=== PATIENT | female | born 2005 | race Caucasian/White ===

== ENCOUNTER 2024-10-15 06:28 | Outpatient (REF) | payer BC, SELFPAY ==
--- NOTE | ~2024-10-15 | US_ITS ---
CLINICAL HISTORY: PELVIC PAIN US PELVIS TRANSABDOMINAL AND TRANSVAGINAL Comparison: None Findings: Transabdominal scanning performed for overall anatomy. Transvaginal scanning performed for additional detail. The uterus measures 8 cm in length. Normal myometrium. Nonspecific fluid distention of the endometrium up to 4 mm in the lower uterine segment. The IUD appears in satisfactory position. Right ovary 4.2 x 3.3 x 3.8 cm. There is a 3.5 x 2.2 x 3.4 cm simple cyst. Left ovary 2.6 x 2.4 x 2.0 cm. Normal color Doppler of both ovaries. No free fluid. IMPRESSION: 1. Color flow in the bilateral ovaries was observed. 2. 3.5 cm simple cyst in the right ovary. SRU Consensus Statement recommendations (Mcintyre, et al. Radiology 2019;[id number]) suggest the following: Common finding. No need for further follow-up. 3. Unremarkable left ovary. 4. IUD in satisfactory position. 5. No free fluid. This document has been electronically signed by: Shea Olguin DO on 10/15/2024 16:55:06
--- OUTSIDE RECORDS SUMMARY | 2024-10-15 06:31 | XMS_ITS | Encounter Summary ---
Author Organization [facility] Address [address] [place] [address] Care Team Providers Care Pit Manager Name Role Phone Thai Castellanos MD Primary Care Provider Encounter Details Date Type Department Care Team (Late st Contact Info) Description 10/24/2023 Community Orders [facility] EpicCare Link [address] [place] [address] Michelle De La Rosa MD [address] [address] Nausea and vomiting, unspecified vomiting type (Primary Dx) Social History Tobacco Use Types Packs/Day Years Used Date Smoking Tobacco: Never Assessed Comments Unknown Sex and Gender Information Value Date Recorded Sex Assigned at Female 06/23/2022 8:18 AM EST Legal Sex Female 6:39 AM EDT Gender Identity Female 06/23/2022 8:18 AM EST Sexual Orientation Bisexual 06/23/2022 8: 18 AM EST documented as of this encounter Plan of Treatment Not on file documented as of this encounter Visit Diagnoses Diagnosis Nausea and vomiting, unspecified vomiting type- Primary documented in this encounter Care Teams Pit Manager Relationship Specialty Start Date End Date Thai Castellanos MD [address] [address] PCP - General 02/09/17 documented as of this encounter
--- OUTSIDE RECORDS SUMMARY | 2024-10-15 06:31 | XMS_ITS | Patient Health Record ---
Author Organization [facility] [employer] Address [address] [address] Care Team Providers Care Hydropulper Operator Name Role Phone Thai Castellanos Primary Care Provider Avinash Ferreira Unavailable [phone] Pratibha Juarez Unavailable [phone] Allergies No Known Allergies Reason For Referral No Information Medications Medication SIG (Take, Route, Frequency, Duration) Notes Start Date End Date Status Rizatriptan Benzoate 10 MG 1 tablet Oral ly at the onset of migraine may repeat once more in 2 hours PRN for 30 days 09/24/2024 Active DULoxetine HCl 20 MG 1 capsule Orally On ce a day for 30 days Active Spironolactone 50 MG 1 tablet Orally Onc e a day Active Social History Tobacco Use: Social History Observation Description Date Details (start date - stop date) Never Smoker NA - NA Tobacco Use/Smoking Question Answer Notes Are you a nonsmoker Tobacco use other than smoking: Question Answer Notes Are you an other tobacco user? No Problems Problem Type SNOMED Code ICD Code Onset Dates Problem Status W/U Status Risk Notes Problem Anxiety (19646101) Anxiety (F41.9) Active confirmed Problem Fatigue (42561150) Fatigue (R53.83) Active confirmed Problem Migraine (89067061) Migraine (G43.909) Active confirmed Problem Depression (784089713) Depression (F32.9) Active confirmed Problem Dizziness (204270120) Dizziness (R42) Active confirmed Problem Concussion injury of brain (103669649) Concussion (S06.0X9A) Active confirmed Problem Attention deficit hyperactivity disorder (033719541) ADHD (attention deficit hyperactivity disorder) (F90.9) Active confirmed Problem Equilibration disorder, vestibular nerve (disorder) (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) Vestibular disequilibrium (H83.2X9) Active confirmed Problem Headache disorder (492778013) Headache disorder (R51.9) Active confirmed Vital Signs BMI Percentile 67.58 % 03/18/2024 Height 66 in 09/24/2024 Weight 145 lbs 09/24/2024 BMI 23.4 kg/m2 09/24/2024 Encounters Encounter Location Date Provider Diagnosis [address] [address] 01/17/2024 Pratibha Juarez Migraine G43.909 ; Depression F32.9 ; Vestibular disequilibrium H83.2X9 and Concussion S06.0X9A [address] [address] 03/18/2024 Pratibha Juarez Migraine G43.909 ; Depression F32.9 ; Vestibular disequilibrium H83.2X9 and Concussion S06.0X9A [address] [address] [facility]/24[facility]20[facility] G43.909 ; Depression F32.9 ; Vestibular disequilibrium H83.2X9 and Concussion S06.0X9A [address] [address] 10/17/[address] [address] 01/16/[address] [address] 04/04/[address] [address] 04/10/[address] [address] 10/07/2024 [facility] Assessments Encounter Date Diagnosis (ICD Code) Assessment Notes Treatment Notes Treatment Clinical Notes Section Notes 01/17/2024 Migraine (ICD-10 - G43.909) Patient with history of migraines and mood disorder. She previously discontinued and then recently restarted Duloxetine due to return of symptoms. It has been 1 month since restarting medication and noted benefit. At this time, we will hold off on any further dose adjustments as she hopes to stay on the lowest dose possible. She typically notes worsened migraines around menstrual cycle and will continue to track and monitor symptoms over the next two months. I also recommend that she continue to engage with therapy. We will follow up at that time and earlier as needed for any new or worsening symptoms. 01/17/2024 Depression (ICD-10 - F32.9) Stable and without SI, will continue to monitor. 03/18/2024 Migraine (ICD-10 - G43.909) Patient with history of migraines and mood disorder, currently improved and stable. She has continued taking Duloxetine 20mg and is tolerating well and without any side effects. We will not make any adjustment in medication at this time given stability. She will continue with therapy. We will plan to follow up in 6 months and earlier as needed for any concerns or for any new or worsening symptoms. 03/18/2024 Depression (ICD-10 - F32.9) Stable and without SI, will continue to monitor. 09/24/2024 Migraine (ICD-10 - G43.909) History of migraines and mood disorder, currently improved and stable. Migraine frequency has decreased to 4-5/month. Triggers are menstural cycle and stress. She has continued taking Duloxetine 40mg and is tolerating well and without any side effects. She would like to explor other medication options for migraine to be use on an as needed basis only and taper Duloxetine slowly as she has noted side effects in the past. We discussed use of triptans for management as rescue including benefits, potential side effects, and dosing and is agreeable to plan. Could also try a CGRP in the future, such as Nurtec. She will start Rizatriptan 10mg PRN migraine. Educated that she can repeat dose after two hours for either partial or no relief of migraine symptoms. I recommend that she continue with therapy as she has been. We will plan to follow up again in 3 months and earlier as needed for any medication concerns or for any new or worsening symptoms. 09/24/2024 Depression (ICD-10 - F32.9) Mood current stable, she would like to trial tapering dose to 20mg daily. A new prescription was sent to the preferred pharmacy. 01/17/2024 Vestibular disequilibrium (ICD-10 - H83.2X9) Stable, will continue to monitor. 03/18/2024 Vestibular disequilibrium (ICD-10 - H83.2X9) 09/24/2024 Vestibular disequilibrium (ICD-10 - H83.2X9) 01/17/2024 Concussion (ICD-10 - S06.0X9A) Stable, will continue to monitor. 09/24/2024 Concussion (ICD-10 - S06.0X9A) Stable, will continue to monitor. 03/18/2024 Concussion (ICD-10 - S06.0X9A) Stable, will continue to monitor. 01/17/2024 Other Visit conducte d using telemedicine technology including audio and video and was requested by patient. Information regarding telehealth communicated to patient. SECURITY PROJECT MANAGER was at office and patient was at home during visit. 03/18/2024 Other Visit conducte d using telemedicine technology including audio and video and was requested by patient. Information regarding telehealth communicated to patient. SECURITY PROJECT MANAGER was at office and patient was at home during visit. 09/24/2024 Other Visit conducte d using telemedicine technology including audio and video and was requested by patient. Information regarding telehealth communicated to patient. SECURITY PROJECT MANAGER was at office and patient was at home during visit. Plan Of Treatment Next Appt Details Provider Name:Pratibhacarin Juarez, 12/24/2024 10:00:00 AM, [address] [place] [address], [facility] [address], [place], [address], Insurance Providers Payer Name Payer Address Payer Phone Subscriber Number Group Number Insured Name Patient Relationship to Insured Coverage Start Date Coverage End Date Blue Cross and Blue Shield [address] [place] [address] [phone] [id number] Adrienne Mann Self - patient is the insured Medical (General) History Medical History History ICD Code Anxiety F41.9 Depression F32.9 Fatigue R53.83 Dizziness R42 Headache disorder R51.9 ADHD (attention deficit hyperactivity di sorder) F90.9 Surgical History Surgery Date(Month/Year) wisdom teeth
--- OUTSIDE RECORDS SUMMARY | 2024-10-15 06:31 | XMS_ITS | Encounter Summary ---
Author Organization [facility] Address [address] [place] [address] Care Team Providers Care Electrical Construction Project Manager Name Role Phone Thai Castellanos MD Primary Care Provider [phone] Encounter Details Date Type Department Care Team (Late st Contact Info) Description 08/29/2024 DRC Computert Message [facility] Pediatric and Adolescent [address] [place], [place] [phone] Cloth Finishing Range Operator Chief: Lisbeth Raygoza, DELORES [address] [facility] Pediatrics/Adoles cent Medicine [place], [place] [phone] Possible return of yeast infection Social History Tobacco Use Types Packs/Day Years Used Date Smoking Tobacco: Never Smokeless Tobacco: Never [facility] Utilities Answer Date Recorded In the past 12 months has [facility] electric, gas, oil, or water company threatened to shut off services in your home? No 05/29/2024 Hunger Vital Sign Answer Date Recorded Within the past 12 months, y ou worried that your food would run out before you got the money to buy more. Never true 05/29/20 24 Within the past 12 months, t he food you bought just didn't last and you didn't have money to get more. Never true 05/29/2024 Transportation Answer Date Recorded In the past 12 months, has l ack of reliable transportation kept you from medical appointments, meetings, work or from getting things needed for daily living? No 05/29/2024 Housing Answer Date Recorded Housing Risk Low 2 05/29/2024 Housing Risk Medium Not on file 05/29/2024 Housing Risk High Not on file 05/29/2024 What is your living situation today? [facility]STEAD[facility] 05/29/2024 Comments Unknown Sex and Gender Information Value Date Recorded Sex Assigned at Female 06/23/2022 8:18 AM EST Legal Sex Female 6:39 AM EDT Gender Identity Female 06/23/2022 8:18 AM EST Sexual Orientation Bisexual 06/23/2022 8: 18 AM EST documented as of this encounter Plan of Treatment Not on file documented as of this encounter Visit Diagnoses Not on filedocumented in this encounter Care Teams Electrical Construction Project Manager Relationship Specialty Start Date End Date Thai Castellanos MD [address] [place] [address] PCP - General 02/09/17 documented as of this encounter
--- OUTSIDE RECORDS SUMMARY | 2024-10-15 06:31 | XMS_ITS | Encounter Summary ---
Author Organization [facility] Address [address] [place] [address] Care Team Providers Care Dog Food Dough Mixer Name Role Phone Thai Castellanos MD Primary Care Provider Encounter Details Date Type Department Care Team (Late st Contact Info) Description 12/05/2022 Community Orders [facility] EpicCare Link [address] [place] [address] Michelle De La Rosa MD [address] [address] Vertigo (Primary Dx) Social History Tobacco Use Types [...] as of this encounter Visit Diagnoses Diagnosis Vertigo- Primary Dizziness and giddiness documented in this encounter Care Teams Dog Food Dough Mixer Relationship Specialty Start Date End Date Thai Castellanos MD [address] [address] PCP - General 02/09/17 documented as of this encounter
--- OUTSIDE RECORDS SUMMARY | 2024-10-15 06:31 | XMS_ITS | Encounter Summary ---
Author Organization [facility] Address [address] [place] [address] Care Team Providers Care Advertising Production Manager Name Role Phone Thai Castellanos MD Primary Care Provider Encounter Details Date Type Department Care Team (Late st Contact Info) Description 02/26/2018 Community Orders [facility] EpicCare Link [address] [place] [address] Thai Castellanos MD [address] [address] Periods, menstrual, difficult (Primary Dx) Social History Tobacco Use Types [...] as of this encounter Visit Diagnoses Diagnosis Periods, menstrual, difficult- Primary Dysmenorrhea documented in this encounter Additional Health Concerns Infection Onset Date Last Indicated Resolved Time COVID-19 - Suspected infection 08/17/2020 08/17/2020 08/17/2020 10:34 PM EST documented as of this encounter Care Teams Advertising Production Manager Relationship Specialty Start Date End Date Thai Castellanos MD [address] [address] PCP - General 02/09/17 documented as of this encounter
--- OUTSIDE RECORDS SUMMARY | 2024-10-15 06:31 | XMS_ITS | Encounter Summary ---
Author Organization [facility] Address [address] [place] [address] Care Team Providers Care Rn Clinical Name Role Phone Thai Castellanos MD Primary Care Provider Encounter Details Date Type Department Care Team (Late st Contact Info) Description 11/10/2022 Community Orders [facility] EpicCare Link [address] [place] [address] Thai Castellanos MD [address] [address] Dizziness (Primary Dx); Vertigo Social History Tobacco Use Types Packs/Day Years [...] as of this encounter Visit Diagnoses Diagnosis Dizziness- Primary Dizziness and giddiness Vertigo Dizziness and giddiness documented in this encounter Care Teams Rn Clinical Relationship Specialty Start Date End Date Thai Castellanos MD [address] [address] PCP - General 02/09/17 documented as of this encounter
--- OUTSIDE RECORDS SUMMARY | 2024-10-15 06:31 | XMS_ITS | Patient Health Record ---
Author Organization [facility] Address [address] [place] [address] Care Team Providers Care Paper Inspector Name Role Phone Thai Castellanos Primary Care Provider Evon Jacobs M.D, M.P.H, [place] Unavailable Allergies No Known Allergies Reason For Referral No Information Medications Medication SIG (Take, Route, Fr equency, Duration) Notes Start Date End Date Status DULoxetine HCl 60 MG 1 cap(s) orally once a day Active Social History Tobacco Use: Social History Observation Description Date Details (start date - stop date) Never Smoker NA - NA Smoking: Question Answer Notes Are you a : Never Smoker Alcohol Screen Question Answer Notes Did you have a drink containing alcohol in the p ast year? No Points 0 Interpretation Negative Plan Of Treatment No Information Insurance Providers Payer Name Payer Address Payer Phone Subscriber Number Group Number Insured Name Patient Relationship to Insured Coverage Start Date Coverage End Date [place] [address] [place] [address] [id number] Mackenzie Anam Greer Child - Insured has Financial Responsibility Medical (General) History Medical History History ICD Code anxiety depression Surgical History Surgery Date(Month/Year) bilateral eyes chiles removed front tooth crown root canal
--- OUTSIDE RECORDS SUMMARY | 2024-10-15 06:31 | XMS_ITS ---
Author Organization [facility] [employer] [facility] Address [address] [address] Care Team Providers Care Glove Printer Name Role Phone Thai Castellanos Primary Care Provider Unavailnash e Avinash Johnston Unavailable [phone] REASON FOR VISIT Meds ? Encounters Encounter Location Date [facility] [address] [address] 10/07/2024 Avinash Johnston Plan Of Treatment Next Appt Details Provider Name:Pratibha Juarez, 12/24/2024 10:00:00 AM, [address] [facility], [address] [address], [place], [address], Progress Notes * Osmani MOBLEYIsaacOB: 4 (19 yo F)Acc No.[id number]:10/07/2024 Patient:?Adrienne MOBLEY :2005???Age:19 Y???Sex:Female Address:[place], [address] * true * Date:? Generated for Printi ng/Faxing/eTransmitting on:?10/15/2024 06:31 AM EDT
--- OUTSIDE RECORDS SUMMARY | 2024-10-15 06:31 | XMS_ITS | Encounter Summary ---
Author Organization [facility] Address [address] [place] [address] Care Team Providers Care Development Vice President Name Role Phone Thai Castellanos MD Primary Care Provider Encounter Details Date Type Department Care Team (Late st Contact Info) Description 08/18/2022 Community Orders [facility] EpicCare Link [address] [place] [address] Michelle De La Rosa MD [address] [address] Nail, injury by, initial encounter (Primary Dx) Social History Tobacco Use Types [...] as of this encounter Visit Diagnoses Diagnosis Nail, injury by, initial encounter- Primary documented in this encounter Care Teams Development Vice President Relationship Specialty Start Date End Date Thai Castellanos MD [address] [address] PCP - General 02/09/17 documented as of this encounter
--- OUTSIDE RECORDS SUMMARY | 2024-10-15 06:31 | XMS_ITS | Encounter Summary ---
Author Organization [facility] Address [address] [place] [address] Care Team Providers Care Aquacultural Worker Supervisor Name Role Phone Thai Castellanos MD Primary Care Provider Encounter Details Date Type Department Care Team (Latest Contact Info) Description 10/12/20[address] Orders [facility] EpicCare Link [address] [place] [address] Michelle De La Rosa MD [address] [place] [phone] Palpitations (Primary Dx); POTS (postural orthostatic tachycardia syndrome) Social History Tobacco Use Types Packs/Day Years [...] as of this encounter Visit Diagnoses Diagnosis Palpitations- Primary POTS (postural orthostatic tachycardia syndrome) Unspecified tachycardia documented in this encounter Care Teams Aquacultural Worker Supervisor Relationship Specialty Start Date End Date Thai Castellanos MD [address] [address] PCP - General 02/09/17 documented as of this encounter
--- OUTSIDE RECORDS SUMMARY | 2024-10-15 06:31 | XMS_ITS | Encounter Summary ---
Author Organization [facility] Address [address] [place] [address] Care Team Providers Care Infantryman Name Role Phone Thai Castellanos MD Primary Care Provider Encounter Details Date Type Department Care Team (Late st Contact Info) Description 08/17/2020 Community Orders [facility] EpicCare Link [address] [place] [address] Thai Castellanos MD 299 [facility] [address] [place] [address] Exposure to SARS-associated coronavirus (Primary Dx) Social History Tobacco Use Types [...] on file documented as of this encounter Results * Due to [place] state law, this organization might not be sharing negative HIV tests. * COVID-19 PCR, MANUFACTURING CONTROLLER/OP/Saliva (08/17/2020 12:49 PM EST) SARS CoV 2 RNA, RT PCR Not Detected Not Detected 08/17/2020 10:34 PM EST [facility] Comment:A Not Detected (Nega tive) test result is indicative of the absence of SARS-CoV-2 RNA at the level of LoD (Limit of Detection). A negative result does not rule out the possibility of COVID-19 and should not be used as the sole basis for treatment or patient management decisions. If COVID-19 is still suspected, based on exposure history together with other clinical findings, re-testing should be considered. Saliva Mouth region structure / Unknown Non-Blood Collection / Unknown 08/17/2020 12:49 PM EST 08/17/2020 2:31 PM EST Narrative [facility] - 08/17/2020 10:34 PM EST These tests were developed, validated, and their performance characteristics determined by the Molecular Virology Laboratory at [facility] under CLIA [id number]. They have not been cleared or approved by the U.S. Food and Drug Administration (FDA). FDA Policy for Diagnostic Tests for Coronavirus Disease-2019 during the Public Health Emergency issued October 07, 2019, is followed. Thai Castellanos MD LAB BODY FLUIDS AND STOOLS OR DERABLES Final Result [facility] [employer] [facility] [address] [place] [id number], documented in this encounter Visit Diagnoses Diagnosis Exposure to SARS-associated coronavirus- Primary documented in this encounter Additional Health Concerns Infection Onset Date Last Indicated Resolved Time COVID-19 - Suspected infection 08/17/2020 08/17/2020 08/17/2020 10:34 PM EST documented as of this encounter Care Teams Infantryman Relationship Specialty Start Date End Date Thai Castellanos MD [address] [place] [address] PCP - General 02/09/17 documented as of this encounter
--- OUTSIDE RECORDS SUMMARY | 2024-10-15 06:32 | XMS_ITS | Encounter Summary ---
Author Organization [facility] Address [address] [place] [address] Care Team Providers Care Home Office Claim Specialist Name Role Phone Thai Castellanos MD Primary Care Provider [phone] Encounter Details Date Type Department Care Team (Late st Contact Info) Description 10/14/2024 Results Follow-Up [facility] Pediatric and Adolescent [address] [place] [address] Body Welder: Shital Smith PA [address] [place] [address] Social History Tobacco Use Types Packs/Day Years Used Date Smoking Tobacco: Never Smokeless Tobacco: Never [facility] Utilities Answer Date Recorded In the past 12 months has th e electric, gas, oil, or water company threatened [...] on filedocumented in this encounter Care Teams Home Office Claim Specialist Relationship Specialty Start Date End Date Thai Castellanos MD [address] [place] [address] PCP - General 02/09/17 documented as of this encounter
--- OUTSIDE RECORDS SUMMARY | 2024-10-15 06:32 | XMS_ITS ---
Author Organization [facility] Address [address] [address] Care Team Providers Care Senior Industrial Engineer Name Role Phone Thai Castellanos Primary Care Provider Avinash Ferreira Unavailable [phone] Pratibha Juarez Unavailable [phone] Allergies No Known Allergies REASON FOR VISIT FU Medication Medications Medication SIG (Take, Route, Frequency, Duration) [...] Are you an other tobacco user? No Vital Signs Height 66 in 09/24/2024 Weight 145 lbs 09/24/2024 BMI 23.4 kg/m2 09/24/2024 Encounters Encounter Location Date Provider Diagnosis [facility] [address] [address] 09/24/2024 Pratibha Juarez Migraine G43.909 ; Depression F32.9 ; Vestibular disequilibrium H83.2X9 and Concussion S06.0X9A Assessments Encounter Date Diagnosis (ICD Code) Assessment Notes Treatment Notes Treatment Clinical Notes Section Notes 09/24/2024 Migraine (ICD-10 - G43.909) History of [...] prescription was sent to the preferred pharmacy. 09/24/2024 Vestibular disequilibrium (ICD-10 - H83.2X9) 09/24/2024 Concussion (ICD-10 - S06.0X9A) Stable, will continue to monitor. 09/24/2024 Other Visit conducte d using telemedicine technology including audio and video and was requested by patient. Information regarding telehealth communicated to patient. CAR REPOSSESSOR was at office and patient was at home during visit. Plan Of Treatment Medication Medication Name Sig Start Date Stop Date Notes Rizatriptan Benzoate 10 MG 1 tablet Oral ly at the onset of migraine may repeat once more in 2 hours PRN for 30 days 09/24/2024 DULoxetine HCl 20 MG 1 capsule Orally On ce a day for 30 days Next Appt Details Follow Up: 3 months AF, Reas on: Provider Name:Pratibha Juarez, 12/24/2024 10:00:00 AM, [address] [place] [address], [address], [place], [address], Progress Notes * Kane MOBLEYOB: 4 (19 yo F)Acc No.[id number]:09/24/2024 Patient:?Adrienne MOBLEY Provider:?DALTON Preston :2005???Age:19 Y???Sex:Female D ate:09/24/2024 Address: [id number] Pcp:Thai Castellanos Subjective: * Chief Complaints: * ???FU Medication * HPI: ???Reason for visit:? Adrienne Mobley is a 19-year-old woman with history of possible vestibular migraines as well as history of concussion and underlying mood disorder. Since she was last seen she has continued taking Duloxetine 40mg daily overall has tolerated well. She is working with [employer] while at school and would?would also like to trial decrease in?dose of Duloxetine again to 20mg.?She discussed today that given that she has noted an improvement in migraines overtime that she would like to try a medication to be used as a rescue. Migraine triggers include menstrual cycle and stress. She denies any current sleep concerns.?There are no new focal neurologic or cognitive deficits either. ?Visit completed via telehealth. * ROS:?Neurologic:?Balance/falls?Denies.?Headache?Denies.?Dizziness?Denies.?Memory loss?Denies.?Attention/concentration difficulty?Denies.?Coordination problem?Denies.?Speech disturbance?Denies.?Restless legs Denies.?Weakness?Denies.?Numbness/paresthesias?Denies.?Tremor/involunt clarissa movement?Denies.?Psychiatric:?Hallucinations?Denies.?Delusions?Denies.?Joyce?Denies.?Attentional Difficulties?Denies.?Anxiety?Denies.?Suicidality?Denies.?Homicidality?Denies.?De pressed mood?Denies.?Anhedonia?Denies.?Irritability? denies, associated.? * Medical History:? * Surgical History:?wisdom pito th * Hospitalization/Major Diagno stic Procedure:?No Hospitalization History. * Family History:?Father: aliv e 48 yrs.?Mother: alive 47 yrs.?1 brother(s) - healthy. .? brother: adhd. * Social History:?Tobacco Use:?Tobacco Use/Smoking?Are you a?nonsmoker.?Tobacco use other than smoking?Are you an other tobacco user??No.? * Medications:?TakingSpironola ctone 50 MG Tablet 1 tablet Orally Once a day DULoxetine HCl 40 MG Capsule Delayed Release Particles TAKE 1 CAPSULE Orally Once a day Medication List reviewed and reconciled with the patientTaking Spironolactone 50 MG Tablet 1 tablet Orally Once a day Taking DULoxetine HCl 40 MG Capsule Delayed Release Particles TAKE 1 CAPSULE Orally Once a day Medication List reviewed and reconciled with the patient * Allergies:?N.K.D.A.no[Allerg ies Verified] Objective: * Vitals:?Wt:145lbs, BMI:23.4I ndex, Ht: 66 in, Pain scale:01-10, Ht-cm: 167.64 cm, Wt-k.77 kg. * Examination: ???General Examination: ?GENERAL APPEARANCE:? pleasant, in no acute distress.?HEAD:? atraumatic.?EYES:? normal.?NEUROLOGIC:?Alert and oriented times 3 No observed facial asymmetry No observed abnormal involuntary movements.?PSYCH:?mood/affect full range, answering questions appropriately, thought process logical, goal directed.? Assessment: * Assessment: 1.?Migraine - G43.909 (Prima ry)???2.?Depression - F32.9???3.?Vestibular disequilibrium - H83.2X9???4.?Concussion - S06.0X9A??? Plan: * Treatment: 2.?Depression? Refill DULoxetine HCl Capsule Delayed Release Particles, 20 MG, 1 capsule, Orally, Once a day, 30 days, 30 Capsule, Refills 0.?? Clinical Notes: Mood current stable, she would like to trial tapering dose to 20mg daily. A new prescription was sent to the preferred pharmacy.?? 3.?Concussion? Clinical Notes: Stable, will continue to monitor. ?? 4.?Others? Clinical Notes: Visit conducted using telemedicine technology including audio and video and was requested by patient. Information regarding telehealth communicated to patient. CAR REPOSSESSOR was at office and patient was at home during visit.?? * Procedure Codes:? * Follow Up:?3 months AF * * Sign off status: Completed Addendum: * ? true * Provider:?DALTON Preston Date:?10/2024 Generated for Fridai darwin/Leroy/eTransmitting on:?10/15/2024 06:31 AM EDT History and Physical Notes * HPI (History of Present Illness) Category Sub-Category Detail Notes Category Not es Reason for visit Visit compl eted via telehealth. Examination Category Sub-Category Detail Notes Category Not es General Examination GENERAL APPEARANCE: pleasant, in n o acute distress HEAD: atraumatic EYES: normal NEUROLOGIC: Alert and oriented t imes 3 No observed facial asymmetry No observed abnormal involuntary movements PSYCH: mood/affect full ran ge, answering questions appropriately, thought process logical, goal directed
--- OUTSIDE RECORDS SUMMARY | 2024-10-15 06:32 | XMS_ITS | Encounter Summary ---
Author Organization [facility] Address [address] [place] [address] Care Team Providers Care Slat Basket Maker Helper Name Role Phone Thai Castellanos MD Primary Care Provider Encounter Details Date Type Department Care Team (Late st Contact Info) Description 02/17/2020 Community Orders [facility] EpicCare Link [address] [place] [address] Thai Castellanos MD [address] [address] Sleep concern (Primary Dx) Social History Tobacco Use Types [...] as of this encounter Visit Diagnoses Diagnosis Sleep concern- Primary documented in this encounter Additional Health Concerns Infection Onset Date Last Indicated Resolved Time COVID-19 - Suspected infection 08/17/2020 08/17/2020 08/17/2020 10:34 PM EST documented as of this encounter Care Teams Slat Basket Maker Helper Relationship Specialty Start Date End Date Thai Castellanos MD [address] [address] PCP - General 02/09/17 documented as of this encounter
--- OUTSIDE RECORDS SUMMARY | 2024-10-15 06:32 | XMS_ITS | Encounter Summary ---
Author Organization [facility] Address [address] [place] [address] Care Team Providers Care Early Childhood Educator Aide Name Role Phone Thai Castellanos MD Primary Care Provider [phone] Encounter Details Date Type Department Care Team (Late st Contact Info) Description 09/30/2016 Orders Only [facility] [address] [address] Lilian Marte MD [address] [place] [id number] Social History Tobacco Use Types Packs/Day Years Used Date Smoking Tobacco: Never Assessed Comments Unknown Sex and Gender Information Value Date Recorded Sex Assigned at Female 06/23/2022 8:18 AM EST Legal Sex Female 6:39 AM EDT Gender Identity Female 06/23/2022 8:18 AM EST Sexual Orientation Bisexual 06/23/2022 8: 18 AM EST documented as of this encounter Progress Notes * Lilian Marte - 09/30/2016 12:00 AM EST [facility] Patient: Adrienne Mann Acct.#: [id number] MR#: [id number] Date of : 2005 Date of Service: 09/30/2016 Loc: [facility] Dict By: Lilian Marte MD Dict Date: 09/30/2016 Trans: 09/30/2016 13:58 PM Clinic Note CHIEF COMPLAINT: Erosions and rash on right cheek. HISTORY OF PRESENT ILLNESS: Adrienne is a 11-year-old girl who presents to dermatology clinic on September 30, 2016, accompanied by her mother for evaluation of an erosion and a rash on her right cheek.She was last seen in dermatology clinic in November [address] Courtney. She had acneiform lesions treated with tretinoin 0.025% cream and metronidazole cream at that time. She also had plantar warts, which were treated with triple acids. Today, she is concerned about a rash on her right cheek. She reports that it started about 2 monthsago as a small red spot, which she thought was an acne bump on her right cheek. It has never been sore or itchy. She denies picking at it. She does get mild acne once in a while, but is not using anytreatments for her acne. The red lesion then opened up. She also has several pink yellow bumps surrounding the erosion. She saw her primary care physician last week who prescribed acyclovir 800 mg 5 times per day. She has been taking this for 1 week without improvement. She returned to her primary care physician's office and saw a nurse practitioner on Monday who prescribed cephalexin, which she has been taking twice per day since Monday without improvement. She and her mother are very frustrated by the lack of improvement. She is also concerned about the cosmetic appearance of it. She has no known history of cold sores. Her mother has a history of cold sores, but she has not come into contact with anyone with active cold sores. PAST MEDICAL HISTORY: 1. Episcleritis. 2. Mild acne. MEDICATIONS: 1. Cephalexin. 2. Acyclovir. ALLERGIES: No known drug allergies. SOCIAL HISTORY: Adrienne is in the sixth grade. She has a younger brother. Her mother who is a nurse works in patient quality and safety here at [employer]. FAMILY HISTORY: Noncontributory. PHYSICAL EXAMINATION: This is a well-appearing, fair skinned, young adolescent female who is alert,oriented and in no acute distress. Weight 120 pounds. On her right central cheek, she has a healingerosion/cribriform scar. Surrounding it on her right cheek and nose, there are scattered erythematous, yellow honey colored papules and pustules. ASSESSMENT AND PLAN: Erosion/scar with surrounding papulopustules: Our differential diagnosis includes impetigo versus impetiginized acne versus herpes simplex versus herpes zoster versus MRSA infection. We unroofed a pustule on her right cheek and cultured the base of it. We sent bacterial cultures, viral cultures and viral DFA for HSV and VZV. Since she has not improved on cephalexin, her mother requested that we switch to an antibiotic with MRSA coverage. Adrienne does not take pills or capsules, so we prescribed sulfamethoxazole and trimethoprim 200-40 mg per 5 mL oral suspension, 20 mL t wice per day for 7 days, which is the equivalent of Bactrim double strength twice per day for 7 days. We also prescribed mupirocin 2% ointment, which they can apply to the open area and keep it covered daily. We will call them with the culture results and further treatment recommendations will be made pending the results. Follow up as needed. Addendum (10/05/16): After discussion with Dr. Eneida Carranza, we broadened the differential to include granulomatous or demodectic rosacea and idiopathic aseptic facial granuloma. We will see what the response to oral and topical antibiotics is and she will follow up with Dr. Marte and Dr. Carranza on 10/17/16. Attending: Britt Servin MD,PhD [id number] cc: Thai Castellanos, Electronically signed by:LILIAN MARTE M.D. Oct 05 2016 10:00AM EST Electronically signed by:BRITT SERVIN M.D. Oct 05 2016 10:19AM EST documented in this encounter Plan of Treatment Not on file documented as of this encounter Visit Diagnoses Not on filedocumented in this encounter Additional Health Concerns Infection Onset Date Last Indicated Resolved Time COVID-19 - Suspected infection 08/17/2020 08/17/2020 08/17/2020 10:34 PM EST documented as of this encounter Care Teams Early Childhood Educator Aide Relationship Specialty Start Date End Date Thai Castellanos MD [address] [place] [id number] PCP - General 02/09/17 documented as of this encounter
--- OUTSIDE RECORDS SUMMARY | 2024-10-15 06:32 | XMS_ITS | Referral Summary ---
Author Organization [facility] Address [address] [place] [address] Care Team Providers Care Ergonomics Technician Name Role Phone Thai Castellanos MD Primary Care Provider [phone] Encounters Date Type Department Care Team Description 10/14/2024 Results Follow-Up [facility] [address] [place] [phone] Box Spring Maker: Shital Smith PA 10/09/2024 9:00 AM EDT Office Visit [facility] [address] [place] [phone] Box Spring Maker: Shital Smith PA Acute vaginitis (Primary Dx) 10/08/2024 Telephone [facility] [address] [place] [phone] Box Spring Maker: Angelica Carlin RN PAC Sick/Symptoms 08/29/2024 myChart Message [facility] [address] [place] [phone] Box Spring Maker: Lisbeth Raygoza NP Possible return of yeast infection 07/29/2024 Orders Only [facility] [address] [place] [phone] Box Spring Maker: Mee Wade MD 07/29/2024 Orders Only [facility] [address] [place] [address] Box Spring Maker: Lisbeth Raygoza NP 07/29/2024 myChart Message [facility] [address] [place] [address] Box Spring Maker: Lisbeth Raygoza NP test results 07/29/2024 Telephone [facility] [address] [place] [phone] Box Spring Maker: Lisbeth Raygoza NP 07/26/2024 3:30 PM EST Follow-Up [facility] [address] [place] [phone] Box Spring Maker: Lisbeth Raygoza NP Acute vaginitis (Primary Dx); Irregular menstrual bleeding 07/21/2024 9:43 AM EST - 07/21/2024 11:59 PM EST Hospital Encounter [facility] Ultrasound [address] [place] [address] Discharge Disposition: Home or Self Care () from Last 3 Months Allergies Active Allergy Reactions Criticality Noted Date Comments Shellfish Derived Unknown 10/06/2020 Medications Qbrexza 2.4 % towelette Apply topically to the affected area. 06/28/20 23 Active clindamycin (CLEOCIN T) 1 % lotion Apply topically to the affected area 2 times daily. 10/13/19 24 Active fluconazole (DIFLUCAN) 150 mg tablet Take one tablet today and one tablet in 72 hours. Then take one tablet weekly for 6 months. 6 tablet 07/29/19 25 Active spironolactone (ALDACTONE) 50 mg tablet Take 50 mg by mouth once a day. Takes it at night to avoid GI upset Active spironolactone (ALDACTONE) 25 mg tablet Take 25 mg by mouth 2 times a day. 025 Discontinued Active Problems Problem Noted Date Diagnosed Date Acute vaginitis 07/26/2024 Assessment & Plan (07/26/2024 6:09 PM EST): Given that she has had recurrent infections over the past 4 months if this culture returned positive it would be prudent to treat her with an extended course of p.o. fluconazole. For now, I will treat her presumptively with fluconazole and follow-up based on the results. We also discussed treating the folliculitis that she gets from shaving with either cessation of shaving, shaving safety techniques or topical hydrocortisone as needed. We also discussed using barrier ointment such as petroleum jelly or Vaseline on the vulva but avoiding other products such as the coconut oil that she is using on the vulva. We discussed the importance of cessation from having any penile vaginal intercourse until full cessation of her vulvar symptoms. I will speak with her and follow-up on receiving the results of today's swab. Anxiety 11/17/2023 Surveillance of contraceptive pill 08/05/2020 Menstrual migraine without s tatus migrainosus, not intractable 08/05/2020 Encounter for new medication prescription 2020 Dizziness 08/05/2020 Shortness of breath 08/05/2020 PLMD (periodic limb movement disorder) 0 Morning headache 07/03/2020 Chronic rhinitis 03/19/2020 Restless sleeper 03/19/2020 Irregular menstrual bleeding 03/13/2018 Overview (07/26/2024): Mirena IUD placed on 12/03/20 and cramps worse since then. Prior to having the IUD she did not really have any cramping. IUD has helped reduce her overall menstrual symptoms such as headaches with periods, irregular bleeding and heavy bleeding though it has made cramping worse. She was on the combined oral contraceptive pill before that for management of headaches with her periods, irregular menses and heavy periods. She feels that her emotions are all over the place on the OCP and she does not want to be back on that. She has a history of elevated free testosterone and DHEA-S. Assessment & Plan (07/26/2024 6:08 PM EST): Will now stick with the IUD as this seems to be the best method of contraception that she has been on though she is struggling with continued menstrual cramps since being on the IUD for the past 4 years. Will reassess at next visit as needed. Assessment & Plan (07/03/2024 9:21 AM EST): IUD in place, cOCP x 1 pack stopped BTB. She will stay off the pill and monitor bleeding. If she continues to have irregular bleeding that is longer, heavier than expected she will follow up. Assessment & Plan (06/23/2022 3:02 PM EST): Pt with menstrual bleeding, dysmenorrhea and IUD in place with concerns about the IUD placement. IUD strings visualized in place and pt reassured. Will follow up PRN. Scarring 12/26/2016 Neoplasm of uncertain behavior of skin 7 Molluscum contagiosum 10/17/2016 Impetigo 09/30/2016 Skin erosion 09/30/2016 Scleritis and episcleritis 12/04/2014 Finger injury 01/21/2014 Crush injury to finger 01/21/2014 Resolved Problems Problem Noted Date Diagnosed Date Resolved Date Hemorrhagic cyst of left ovary 05/29/2024 07/03/2024 Overview (05/29/2024): Seen on US 05/24/24 Assessment & Plan (05/29/2024 6:39 PM EST): Pt with 2cm hemorrhagic left sided ovarian cyst seen on pelvic US in ER 5 days ago. She has been improving since then with markedly less abdominal pain which she rates at a 1 to 2 at worst. She is most concerned about continued irregular menstrual bleeding. We discussed the nature of ovarian cysts and that they can be a part of ovulation that goes wrong or can be because of PCOS. She did have elevated Free T in 2018 when she was 13yrs old but since then has been on hormonal rx for periods and contraception. She has at least one other episode of what may have been an ovarian cyst. It would be very unlikely for this to be an endometrioma given her age and that she has not been having symptoms of dysmenorrhea or endometriosis. Will follow up as needed based on the results of repeat US. We discussed the colicky nature of the pain associated with hemorrhagic cysts and the need for rest other than normal ADLs until feeling better and then can slowly ramp up activity. Advised waiting to be SA again until can tolerate increased exercise and ADLs without pain. Will monitor cyst with US in about 6 weeks when home for break. Will monitor CBC and iron studies given the neutrophilia from last weeks visit and the ongoing bleeding. Will use low dose cOCP for one pack to stop menstrual bleeding. No migraine aura, no VTE h.o. Reminded about VTE risk and need to stop if she gets migraine aura or other signs of VTE however she tolerated 30/35mcg EE cOCPs in the past. She has IUD in place. She will follow up if bleeding does not stop. Regarding current URI sx, advised monitoring and follow up with PCP / [facility] if needed. Acute pelvic pain 04/07/2018 07/03/2024 Immunizations Immunization Administration Dates Next Due Covid-19, Pfizer, mRNA, [place] valent, PF 30 mcg/0.3 mL dose (for ages 12 and older) 12/09/2020,11/11/2020 Social History Tobacco Use Types Packs/Day Years Used Date Smoking Tobacco: Never Smokeless Tobacco: Never Tobacco Cessation:Counseling Given: Not Answered [facility] Utilities Answer Date Recorded In the past [...] Orientation Bisexual 06/23/2022 8: 18 AM EST Last Filed Vital Signs Vital Sign Reading Time Taken Comments Blood Pressure 128/78 10/09/2024 9:10 AM EDT Pulse 52 10/09/2024 9:10 AM EDT Temperature 36.4 ??C (97.5 ??F) 07/26/2024 3:24 PM ES T Respiratory Rate 20 06/23/2022 2:18 PM EST Oxygen Saturation 100% 11/17/2023 11:08 AM EDT Inhaled Oxygen Concentration - - Weight 70.9 kg (156 lb 4.9 oz) 10/09/2024 9:10 A M EDT Height 167.3 cm (5' 5.87 ) 10/09/2024 9:10 AM ED T Body Mass Index 25.33 10/09/2024 9:10 AM EDT Plan of Treatment Not on file Procedures * Due to [employer] law, this organization might not be sharing negative HIV tests. Procedure Name Priority Date/Time Associated Diagnosis Comments SURESWAB ADVANCED VAGINITIS RNA PANEL, [id number] Routine 10/09/2024 10:03 AM EDT Acute vaginitis MISCELLANEOUS TEST Routine 10/09/2024 10 :03 AM EDT Acute vaginitis SURESWAB ADVANCED VAGINITIS RNA PLUS PANEL, TMA (BV, CV, TV & CT/NG)-[id number] Routine 07/26/2024 4:46 PM EST Acute vaginitis US PELVIS NON OB TRANSABDOMINAL COMPLETE Routine 07/21/2024 10:04 AM EST Acute pelvic pain from Last 3 Months Results * Due to [employer] law, this organization might not be sharing negative HIV tests. * SureSwab Advanced Vaginitis RNA Panel, TMA (10/09/2024 10:03 AM EDT) [facility] Bacterial Vaginosis RNA NEGATIVE NEGATIVE 10/10/2024 10:45 AM EDT [email or web address] Lorie species RNA NOT DETECTED NOT DETECTED 10/10/2024 10:45 AM EDT [facility] Lorie glabrata RNA NOT DETECTED NOT DETECTED 10/10/2024 10:45 AM EDT [facility] Trichomonas vaginalis RNA NOT DETECTED NOT DETECTED 10/10/2024 10:45 AM EDT [email or web address] Comment: Lorie species C. albicans, C. tropicalis, C. parapsilosis, and/or C. dubliniensis can be detected, but not differentiated, in the Lorie spp. result. Swab Vaginal structure / Unknown Non-Blood Collection / Unknown 10/09/2024 10:03 AM EDT 10/09/2024 10:11 AM EDT Narrative [facility] - 10/10/2024 10:45 AM EDT [facility] Received Date:[id number] Shital CHU LAB BODY FLUIDS AND STOOLS O RDERABLES Final Result Performing Organization Address City/[facility]/ZIP Co de Phone Number [address] Floor, [place] [address], [place] [phone] [facility] [address] [facility], [place] [address], [place] [phone] * Mycoplasma genitalium, rRNA, TMA - Miscellaneous Test (10/09/2024 10:03 AM EDT) [facility] Miscellaneous Lab Test Result See scanned report 10/14/2024 1:54 PM EDT EXTERNAL NON-INTERFAC ED LAB Swab Vaginal structure / Unknown Non-Blood Collection / Unknown 10/09/2024 10:03 AM EDT 10/09/2024 10:11 AM EDT Shital CHU LAB BLOOD ORDERABLES Final R esult EXTERNAL NON-INTERFACED LAB * (ABNORMAL) SureSwab Advanced Vaginitis RNA Plus Panel, TMA (BV, CV, TV & CT/NG) (07/26/2024 4:46 PM EST) Bacterial Vaginosis RNA POSITIVE(A) NEGATIVE 07/27/2024 1:34 PM EST [facility] Lorie species RNA DETECTED(A) NOT DETECTED 07/27/2024 1:34 PM EST [facility] Lorie glabrata RNA NOT DETECTED NOT DETECTED 07/27/2024 1:34 PM EST [facility] Trichomonas vaginalis RNA NOT DETECTED NOT DETECTED 07/27/2024 1:34 PM EST [facility] Chlamydia trachomatis RNA, TMA NOT DETECTED NOT DETECTED 07/27/2024 1:34 PM EST [facility] Neisseria Gonorrhoeae RNA, TMA NOT DETECTED NOT DETECTED 07/27/2024 1:34 PM EST [facility] Comment: Lorie species C. albicans, C. tropicalis, C. parapsilosis, and/or C. dubliniensis can be detected, but not differentiated, in the Lorie spp. result. For additional information, please refer to https://education.Viyet/faq/AVT592 (This link is being provided for information/ educational purposes only.) Swab Specimen from vulva / Unknown Non-Blood Collection / Unknown 07/26/2024 4:46 PM EST 07/26/2024 5:20 PM EST Narrative [facility] - 07/27/2024 1:34 PM EST [facility] Received Date: us Lisbeth Mcfadden NP LAB BODY FLUIDS AND STOO LS ORDERABLES Final Result [facility] [address] [facility] [address], [place] [address], [place] [phone] [facility] [address] [facility] [address], [place] [address], [place] [phone] * US Pelvis Non OB Transabdominal Complete (07/21/2024 10:04 AM EST) Anatomical Region Laterality Modality Body, Pelvis N/A Ultrasound Study GA Study Date Study RONNIE Working RONNIE (Source) 07/21/2024 07/21/2024 10:2 7 AM EST Impressions 07/21/2024 10:28 AM EST Normal sonographic appearance of the uterus and ovaries with an appropriately positioned IUD in place. If this radiology report contains a blank impression section, it is an incomplete radiology report. ??Please contact the interpreting radiologist or applicable radiology division as soon as possible to obtain the completed interpretation. ? Workstation ID: [id number] Narrative 07/21/2024 10:28 AM EST EXAMINATION: PELVIC ULTRASOUND. INDICATION: Pelvic and perineal pain. TECHNIQUE: Transabdominal ultrasound imaging of the pelvis was performed. The patient declined transvaginal examination. Color Doppler analysis of the ovaries was performed. COMPARISON: None available. FINDINGS: UTERUS: The uterus measures 6.3 x 2.6 x 4.1 cm. - Myometrium: Normal echotexture without focal lesion. - Endometrium: Homogeneous, measuring 4 mm. There is an intrauterine contraceptive device in place, which appears appropriately positioned within the endometrial canal. OVARIES/ADNEXA: - The right ovary measures 2.8 x 1.7 x 1.3 cm (volume 3 mL). - The left ovary measures 3.2 x 2.0 x 3.0 cm (volume 10 mL). A dominant follicle is noted in the left ovary. PELVIS: No free fluid. Resulting Agency Comment [id number] Procedure Note Remy Maria MD - 07/21/2024 EXAMINATION: PELVIC ULTRASOUND. INDICATION: Pelvic and perineal pain. TECHNIQUE: Transabdominal ultrasound imaging of the pelvis was performed.The patient declined transvaginal examination. Color Doppler analysis ofthe ovaries was performed. COMPARISON: None available. FINDINGS: UTERUS: The uterus measures 6.3 x 2.6 x 4.1 cm. - Myometrium: Normal echotexture without focal lesion. - Endometrium: Homogeneous, measuring 4 mm. There is an intrauterinecontraceptive device in place, which appears appropriately positionedwithin the endometrial canal. OVARIES/ADNEXA: - The right ovary measures 2.8 x 1.7 x 1.3 cm (volume 3 mL). - The left ovary measures 3.2 x 2.0 x 3.0 cm (volume 10 mL). A dominantfollicle is noted in the left ovary. PELVIS: No free fluid. IMPRESSION: Normal sonographic appearance of the uterus and ovaries with anappropriately positioned IUD in place. If this radiology report contains a blank impression section, it is anincomplete radiology report. Please contact the interpreting radiologistor applicable radiology division as soon as possible to obtain thecompleted interpretation. Workstation ID: [id number] us Lisbeth Mcfadden NP IMG US PROCEDURES Final Result from Last 3 [place] [address] [facility] PPO/[place] [id number] [facility] PPO/EPO [facility] PPO/EPO Care Teams Ergonomics Technician Relationship Specialty Start Date End Date Thai Castellanos MD [address] [place] [id number] PCP - General 02/09/17
--- OUTSIDE RECORDS SUMMARY | 2024-10-15 06:32 | XMS_ITS | Encounter Summary ---
Author Organization [facility] Address [address] [place] [address] Care Team Providers Care Dental Floss Packer Name Role Phone Thai Castellanos MD Primary Care Provider [phone] Encounter Details Date Type Department Care Team (Late st Contact Info) Description 10/09/2024 9:00 AM EDT Office Visit [facility] [address] [place] [address] Drafting Supervisor: Shital Smith PA [address] [place] [address] Acute vaginitis (Primary Dx) Social History Tobacco Use Types Packs/Day Years Used Date Smoking Tobacco: Never Smokeless Tobacco: Never [facility] Utilities Answer Date Recorded In the past 12 months has [facility] electric, gas, oil, or water company threatened [...] AM EST documented as of this encounter Last Filed Vital Signs Vital Sign Reading Time Taken Comments Blood Pressure 128/78 10/09/2024 9:10 AM EDT Pulse 52 10/09/2024 9:10 AM EDT Temperature - - Respiratory Rate - - Oxygen Saturation - - Inhaled Oxygen Concentration - - Weight 70.9 kg (156 lb 4.9 oz) 10/09/2024 9:10 A M EDT Height 167.3 cm (5' 5.87 ) 10/09/2024 9:10 AM ED T Body Mass Index 25.33 10/09/2024 9:10 AM EDT documented in this encounter Progress Notes * VLAD Ibarra - 10/09/2024 9:00 AM EDT ABOUT PHYSICIAN DOCUMENTATION If you are the patient or the parent/guardian of the patient in this chart, please use caution if you choose to read physician notes. Please remember that these notes are how physicians communicate with other medical providers. They may seem formal or impersonal and often use medical terms and abbreviations. These notes may be reviewed by patients and guardians, but are not written for this purpose. If you have a question about something in the chart, please contact your or your child's medicalteam by telephone or through [employer]. Adolescent Medicine Acute Visit CC: Recurrent vaginitis HPI: Adrienne is a 19 y.o. female with history of Hemorrhagic ovaria cyst 06/16, BTB on IUD and here today for recurrent vaginal discharge To briefly summarize her course to date, she was last seen 07/26/24 for ongoing vaginitis. At that time, she reported 3-4 yeast infections in the past 4 months. Sureswab was positive for BV and yeast. She was treated for BV and started on treatment for recurrent yeast infections. Mirena IUD placed 12/03/20. Recent 1 month trial of cOCP for irregular bleeding management. She also has a history of elevated free testosterone and DHEA-S. History of Hemorrhagic cyst, though ultrasound 07/21/24, shows normal uterus and ovaries with IUD in place. Since last being seen: -Has been dealing with recurrent discharge for past ~4 months -Sent [employer] message regarding yeast-like vaginal discharge, despite weekly fluconazole tx -Visited the [facility] health [facility] at [facility] who identified yeast is resistant to standard treatment -She discontinued fluconazole at that time -She is working with her SKIN DIVING TEACHER at school for tx -Treatments tried: Metronidazole, Boric Acid suppositories, 3-day Ovule (Clindamycin) -She felt Boric Acid did treat yeast infection but not BV, tx was tedious -Had strep several weeks ago and was on abx -She and her SKIN DIVING TEACHER planned to test her for Mycoplasma genitalium test to see if that is what is causing symptoms, though due to a mix-up at the lab results were unavailable -She is hoping swab for that and BV/yeast as discharge has returned and she is home for spring -Last treatment ended 4-5 days ago, and discharge has returned -She endorses vaginal itching though denies odor or vulvar soreness -She uses only water with washing no soaps -She has an US scheduled as she has hx of ovarian cysts -She continues to experience cramping, both during her menses and in between menses -Cramps feel like normal period cramps and are a dull sensation that is constant with intermittent sharp pains when her period is due -Pain is well-controlled with Ibuprofen and teas -Interested in finding yoga poses for relieving cramps -She denies abnormal bleeding or dysuria -No pain with peeing -LMP: periods are random with IUD -Sexually active: Yes, last 4 months ago, due to reccurent discharge/BA treatment -No relationship currently -Using condoms most of the time -STI testing deferred as was recently completed ROS: All other systems reviewed and negative as noted in HPI. PMH: Past Medical History: Diagnosis Date Acute pelvic pain 04/07/2018 Hemorrhagic cyst of left ovary 05/29/2024 Seen on US 05/24/24 Meds: Current Outpatient Medications Medication Sig Dispense Refill clindamycin (CLEOCIN T) 1 % lotion Apply topically to the affected area 2 times daily. fluconazole (DIFLUCAN) 150 mg tablet Take one tablet today and one tablet in 72 hours. Then take one tablet weekly for 6 months. 6 tablet 0 Qbrexza 2.4 % towelette Apply topically to the affected area. spironolactone (ALDACTONE) 25 mg tablet Take 25 mg by mouth 2 times a day. No current facility-administered medications for this visit. Allergies: Allergies Allergen Reactions Shellfish Derived Unknown Imm: Immunization History Administered Date(s) Administered Covid-19, Pfizer, mRNA, Monovalent, PF 30 mcg/0.3 mL dose (for ages 12 and older) 11/11/2020, 12/09/2020 Physical Exam: Vitals: 10/09/24 0910 BP: 128/78 BP Location: Left arm Patient Position: Sitting Pulse: (!) 52 Weight: 70.9 kg (156 lb 4.9 oz) Height: 1.673 m (5' 5.87 ) GEN: NAD, alert, cooperative HEENT: NC/AT, no conjunctival injection CV: well perfused RESP: no inc WOB, CTAB ABD: SNTND, no rebounding or guarding MSK: No edema present, full ROM in extremities NEURO: No obvious focal deficits, CN 2-12 grossly intact, normal gait : Deferred SKIN: No lesions/rashes PSYCH: Normal mood/affect Labs: No results found for this or any previous visit (from the past 48 hours). Orders Placed This Encounter Procedures Mycoplasma genitalium, rRNA, TMA - Miscellaneous Test Standing Status: Future Number of Occurrences: 1 Expected Date: 10/09/2024 Expiration Date: 10/09/2025 Test name (Required):: Mycoplasma genitalium, rRNA, TMA Test code:: [id number] Release to patient: Immediate SureSwab Advanced Vaginitis RNA Panel, TMA Standing Status: Future Number of Occurrences: 1 Expected Date: 10/09/2024 Expiration Date: 10/09/2025 Release to patient: Immediate Assessment/Plan: Adrienne is a 19 y.o. female here with recurrent vaginal discharge for about 4 months despite multiple treatments including fluconazole, BA suppositories and Clindamycin. The most recent treatments have been ineffective as her discharge has returned within 4-5 days after discontinuing it. She described the discharge as yeasty and she endorses vaginal itching but denies odor or soreness. No urinary symptoms or abnormal bleeding reported though she continues to experience cramping which is described as dull with intermittent sharp pains. She manages pain with Ibuprofen and teas. Exam today is reassuring with no abdominal pain, guarding or rebounding. She has been working up recurrent vaginitis with her SKIN DIVING TEACHER at school though she is currently on break. She wishes to pursue testing for Mycoplasma genitalium as the cause of her recurrent discharge. She defers referral to ID at this time. She had strep throat several weeks ago and was treated with antibiotics, we discussed this could have impacted her vaginal joann and recurrent discharge. Will follow up with her with results from the swabs. -Vaginitis SureSwab collected today, will treat based on results -Swab for Mycoplasma genitalium collected as well, patient is aware results take ~1 week.Will be intouch with her via myChart with results -Reviewed vulvovaginal hygiene including avoiding harsh soaps or fragrances in the genital area -Avoid douching as it often disrupts the natural balance of bacteria and yeast in the vagina, recommended washing vulva with warm water -Can apply topical emollients (Vaseline or Aquaphor) for vulvar irritation -If symptoms worsen or do not improve discussed seeking medical attention especially if pain becomes focal, or she develops fever, chills, nausea or vomiting -Use condoms correctly and consistently for all types of sexual activity Problem List None Adrienne agreed with the plan and expressed understanding of all information discussed today. Shital Jarvis PA-C Adolescent/Young Adult Medicine I spent a total of 30 minutes on the date of encounter, which included: ?? Preparing to see the patient (e.g., review of test results) ?? Obtaining and/or reviewing separately obtained history ?? Performing a medically appropriate exam and/or evaluation ?? Counseling and educating the patient/family/caregiver ?? Ordering medications, tests, procedures ?? Documenting clinical information in the health record documented in this encounter Plan of Treatment Not on file documented as of this encounter Procedures * Due to [place] state law, this organization might not be sharing negative HIV tests. Procedure Name Priority Date/Time Associated Diagnosis Comments SUREAB ADVANCED VAGINITIS RNA PANEL, [id number] Routine 10/09/2024 10:03 AM EDT Acute vaginitis MISCELLANEOUS TEST Routine 10/09/2024 10 :03 AM EDT Acute vaginitis documented in this encounter Results * Due to [facility] law, this organization might not be sharing negative HIV tests. * [facility] Advanced Vaginitis RNA Panel, TMA (10/09/2024 10:03 AM EDT) [facility] Bacterial Vaginosis RNA NEGATIVE NEGATIVE 10/10/2024 10:45 AM EDT [employer] [facility] Lorie species RNA NOT DETECTED NOT DETECTED 10/10/2024 10:45 AM EDT [employer] [facility] Lorie glabrata RNA NOT DETECTED NOT DETECTED 10/10/2024 10:45 AM EDT [employer] [facility] Trichomonas vaginalis RNA NOT DETECTED NOT DETECTED 10/10/2024 10:45 AM EDT [employer] [facility] Comment: Lorie species C. albicans, C. tropicalis, C. parapsilosis, and/or C. dubliniensis can be detected, but not differentiated, in the Lorie spp. result. Swab Vaginal structure / Unknown Non-Blood Collection / Unknown 10/09/2024 10:03 AM EDT 10/09/2024 10:11 AM EDT [facility] - 10/10/2024 10:45 AM EDT [facility] Received Date: Shital CHU LAB BODY FLUIDS AND STOOLS O RDERABLES Final Result [facility] [address] [facility] [address]rd [address], [place] [address], [place] [phone] [employer] [facility] [address] [facility] [address], [place] [address], [place] [phone] * Mycoplasma genitalium, rRNA, TMA - Miscellaneous Test (10/09/2024 10:03 AM EDT) [facility] Miscellaneous Lab Test Result See scanned report 10/14/2024 1:54 PM EDT EXTERNAL NON-INTERFAC ED LAB Swab Vaginal structure / Unknown Non-Blood Collection / Unknown 10/09/2024 10:03 AM EDT 10/09/2024 10:11 AM EDT us hSital CHU LAB BLOOD ORDERABLES Final R esult EXTERNAL NON-INTERFACED LAB documented in this encounter Visit Diagnoses Diagnosis Acute vaginitis- Primary Unspecified vaginitis and vulvovaginitis documented in this encounter Care Teams Dental Floss Packer Relationship Specialty Start Date End Date Thai Castellanos MD [address] [place] [phone] PCP - General 02/09/17 documented as of this encounter
--- OUTSIDE RECORDS SUMMARY | 2024-10-15 06:32 | XMS_ITS | Clinical Summary ---
Author Organization [facility] Address [address] [place] [address] Care Team Providers Care Basket Braider Name Role Phone Thai Castellanos MD Primary Care Provider [phone] Allergies Active Allergy Reactions Criticality Noted Date [...] monitoring and follow up with PCP / [facility] if needed. Acute pelvic pain 04/07/2018 07/03/2024 Encounters Date Type Department Care Team Description 10/14/2024 Results Follow-Up [facility] [address] [place] [address] Billing Associate: Shital Smith PA 10/09/2024 9:00 AM EDT Office Visit [facility] [address] [place] [address] Billing Associate: Shital Smith PA Acute vaginitis (Primary Dx) 10/08/2024 Telephone [facility] [address] [place] [address] Billing Associate: Angelica Carlin RN PAC Sick/Symptoms 08/29/2024 [employer] Message [facility] [address] [place] [address] Billing Associate: Lisbeth Raygoza NP Possible return of yeast infection 07/29/2024 Orders Only [facility] [address] [place] [address] Billing Associate: Mee Wade MD 07/29/2024 Orders Only [facility] [address] [place] [address] Billing Associate: Lisbeth Raygoza NP 07/29/2024 myChart Message [facility] [address] [place] [address] Billing Associate: Lisbeth Raygoza NP test results 07/29/2024 Telephone [facility] [address] [place] [address] Billing Associate: Lisbeth Raygoza NP 07/26/2024 3:30 PM EST Follow-Up [facility] [address] [place] [address] Billing Associate: Lisbeth Raygoza NP Acute vaginitis (Primary Dx); Irregular menstrual bleeding 07/21/2024 9:43 AM EST - 07/21/2024 11:59 PM EST Hospital Encounter [facility]trasound [address] [place] [address] Discharge Disposition: Home or Self Care () from Last 3 Months Immunizations Immunization Administration Dates Next Due Covid-19, Pfizer, mRNA, [place] valent, PF 30 mcg/0.3 mL dose (for ages 12 and older) 12/09/2020,11/11/2020 Family History Medical History Relation Name Comments ADD / ADHD Brother Anxiety disorder Brother Other Father Family history of No pertinent family history Other Mother Family history of No pertinent family history Heart disease Other Cancer Paternal Grandmother Relation Name Status Comments Brother Father Mother Other Paternal Grandmother Social History Tobacco Use Types Packs/Day Years Used Date Smoking Tobacco: Never Smokeless Tobacco: Never Tobacco Cessation:Counseling Given: Not Answered [facility] Utilities Answer Date Recorded In the past 12 months has [employer], oil, or water [employer] threatened to shut off services in your [...] 10/09/2024 9:10 AM EDT Plan of Treatment Health Maintenance Due Date Last Done Comments HIV Screening 2004 Hepatitis C Screening 2004 1 Week [facility] 2004 1 Month [facility] 2004 2 Month [facility] 2004 4 Month [facility] 2004 6 Month [facility] 2004 9 Month [facility] 01/12/2005 12 Month [facility] 04/24/2005 15 Month [facility] 07/11/2005 18 Month [facility] 10/09/2005 24 Month [facility] 04/07/2006 30 Month [facility] 08/11/2006 3 to 21 Year [facility] 2007 Well Child Check 2007 Varicella Vaccines (2 of 2 - 2-dose childhood series) 2008 05/03/2005 DTaP,Tdap,and Td Vaccines (2 - Td or Tdap) 04/07/2016 03/10/2016 Hepatitis B Vaccines (1 of 3 - 19+ 3-dose series) 2023 COVID-19 Vaccine ( season) 2024 06/28/2022, 07/21/2021, 12/09/2020, Additional history exists Influenza Vaccine (#1) 2024 , 07/21/2021, 04/28/2020, Additional history exists Depression Screening and Follow-Up 07/24/2024 05/29/2024 [employer] [facility] [employer] Annual Screening 07/24/2024 Chlamydia Screening 07/26/2025 07/26/2024, 05/24/2024, 06/23/2022, Additional history exists RSV Vaccine (60+ years old and patients) (1 - 1-dose 75+ series) 2079 MMR Vaccines Completed 08/18/2005 HPV Vaccines Completed 07/03/2017, 03/10/2016 Meningococcal Vaccine Completed 04/15/2021, 016 Pneumococcal Vaccine: Pediatric (0-5 Years) and At-Risk Patients (6-50 Years) Aged Out No longer eligible based on patient's age to complete this topic Procedures * Due to [place] [employer] law, this organization might not be sharing negative HIV tests. Procedure Name Priority Date/Time Associated Diagnosis Comments SUREAB ADVANCED VAGINITIS RNA PANEL, [id number] Routine 10/09/2024 10:03 AM EDT Acute vaginitis MISCELLANEOUS TEST Routine 10/09/2024 10 :03 AM EDT Acute vaginitis SUREAB ADVANCED VAGINITIS RNA PLUS PANEL, TMA (BV, CV, TV & CT/NG)-[id number] Routine 07/26/2024 4:46 PM EST Acute vaginitis US PELVIS NON OB TRANSABDOMINAL COMPLETE Routine 07/21/2024 10:04 AM EST Acute pelvic pain from Last 3 Months Results * Due to [place] [employer] law, this organization might not be sharing negative HIV tests. * [facility] Advanced Vaginitis RNA Panel, TMA (10/09/2024 10:03 AM EDT) [facility] Bacterial Vaginosis RNA NEGATIVE NEGATIVE 10/10/2024 10:45 AM EDT [employer] [facility] Lorie species RNA NOT DETECTED NOT DETECTED 10/10/2024 10:45 AM EDT [employer] [facility] Lorie glabrata RNA NOT DETECTED NOT DETECTED 10/10/2024 10:45 AM EDT [employer] [facility] Trichomonas vaginalis RNA NOT DETECTED NOT DETECTED 10/10/2024 10:45 AM EDT [employer] [facility] Comment: Lorie species C. albicans, C. tropicalis, C. parapsilosis, and/or C. dubliniensis can be detected, but not differentiated, in the Lorie spp. result. Swab Vaginal structure / Unknown Non-Blood Collection / Unknown 10/09/2024 10:03 AM EDT 10/09/2024 10:11 AM EDT [facility] - 10/10/2024 10:45 AM EDT [facility] Received Date:[id number] Shital CHU LAB BODY FLUIDS AND STOOLS O RDERABLES Final Result [address], [place] [address], [place] [phone] [employer] [address], [place] [address], [place] [phone] * Mycoplasma genitalium, rRNA, TMA - Miscellaneous Test (10/09/2024 10:03 AM EDT) [facility] Miscellaneous Lab Test Result See scanned [...] RNA POSITIVE(A) NEGATIVE 07/27/2024 1:34 PM EST [employer] [facility] Lorie species RNA DETECTED(A) NOT DETECTED 07/27/2024 1:34 PM EST [employer] [facility] Lorie glabrata RNA NOT DETECTED NOT DETECTED 07/27/2024 1:34 PM EST [employer] [facility] Trichomonas vaginalis RNA NOT DETECTED NOT DETECTED 07/27/2024 1:34 PM EST [employer] [facility] Chlamydia trachomatis RNA, TMA NOT DETECTED NOT DETECTED 07/27/2024 1:34 PM EST [facility] Neisseria Gonorrhoeae RNA, TMA NOT DETECTED NOT DETECTED 07/27/2024 1:34 PM EST [employer] [facility] Comment: Lorie species C. albicans, C. tropicalis, C. parapsilosis, and/or C. dubliniensis can be detected, but not differentiated, in the Lorie spp. result. For additional information, please refer to https://education.Piktochart/faq/NPV320 (This link is being provided for information/ educational purposes only.) Swab Specimen from vulva / Unknown Non-Blood Collection / Unknown 07/26/2024 4:46 PM EST 07/26/2024 5:20 PM EST Narrative [facility] - 07/27/2024 1:34 PM EST [facility] Received Date: us Lisbeth Mcfadden NP LAB BODY FLUIDS AND STOO LS ORDERABLES Final Result [facility] [address] [facility] [address], [place] [address], [place] [phone] [employer] [facility] [address] [facility] 3rd [address], [place] [address], [place] [phone] * [place] Pelvis Non OB Transabdominal Complete [...] obtain the completed interpretation. ? Workstation ID: [id number] Narrative 07/21/2024 10:28 AM EST EXAMINATION: PELVIC [...] PELVIS: No free fluid. Resulting Agency Comment [id number] Procedure Note Remy Maria MD - 07/21/2024 [...] possible to obtain thecompleted interpretation. Workstation ID: [id number] us Lisbeth Mcfadden NP IMG US PROCEDURES Final Result from Last 3 [place] [id number] [facility] PPO/[place] [address] [facility] PPO/EPO [facility] PPO/EPO Care Teams Basket Braider Relationship Specialty Start Date End Date Thai Castellanos MD [address] [place] [phone] PCP - General 02/09/17
--- OUTSIDE RECORDS SUMMARY | 2024-10-15 06:32 | XMS_ITS | Encounter Summary ---
Author Organization [facility] Address [address] [place] [address] Care Team Providers Care Form Setter Metal [employer] Forms Name Role Phone Thai Castellanos MD Primary Care Provider [phone] Reason for Visit * Reason Onset Date Comments PAC Sick/Symptoms 10/08/2024 Encounter Details Date Type Department Care Team (Late st Contact Info) Description 10/08/2024 Telephone [facility] [address] [place] [address] Shoe Maker: Angelica Carlin RN PAC Sick/Symptoms Social History Tobacco Use Types Packs/Day Years Used Date Smoking Tobacco: Never Smokeless Tobacco: Never [facility] Utilities Answer Date Recorded In the [...] AM EST documented as of this encounter Miscellaneous Notes * Telephone Encounter - Angelica Zapata RN - 10/08/2024 10:13 AM EDT Telephone call to [place], urgent visit booked for tomorrow. * Telephone Encounter - Corey Stone - 10/08/2024 9:34 AM EDT Pt of HOSPITAL NURSING ASSISTANT Lisbeth Mcfadden Pt is calling in would like to schedule recurring yeast infection. PAC first availability is 10/14/2024 with MD Mee Erickson. Pt would like an appt this week if possible she goes back to college. [phone] documented in this encounter Plan of Treatment Not on file documented as of this encounter Visit Diagnoses Not on filedocumented in this encounter Care Teams Form Setter Metal [employer] Forms Relationship Specialty Start Date End Date Thai Castellanos MD [address] [place] [address] PCP - General 02/09/17 documented as of this encounter
--- OUTSIDE RECORDS SUMMARY | 2024-10-15 06:32 | XMS_ITS | Encounter Summary ---
Author Organization [facility] Address [address] [place] [address] Care Team Providers Care Gaggerman Name Role Phone Thai Castellanos MD Primary Care Provider Encounter Details Date Type Department Care Team (Late st Contact Info) Description 10/05/2016 Orders Only [facility] [address] [address] Rebecca Marte MD [address] [place] [phone] Social History Tobacco Use Types Packs/Day Years [...] documented as of this encounter Care Teams Gaggerman Relationship Specialty Start Date End Date Thai Castellanos MD [address] [facility] [address] [place] [address] PCP - General 02/09/17 documented as of this encounter
--- OUTSIDE RECORDS SUMMARY | 2024-10-15 06:32 | XMS_ITS ---
Author Organization [facility], [facility] [employer] [facility] Address [address] [place] [id number] Care Team Providers Care Barrel Cutter Name Role Phone Thai Castellanos Primary Care Provider Avinash Ferreira Unavailable [phone] Pratibha Juarez Unavailable [phone] REASON FOR VISIT 1 script went to wrong pharmacy Medications Medication SIG (Take, Route, Fr equency, Duration) Notes Start Date End Date Status DULoxetine HCl 20 MG 1 capsule Orally On ce a day for 30 days Active Encounters Encounter Location Date Provider Diagnosis [facility] [employer] [address] [id number] 04/10/2024 Pratibha Juarez Plan Of Treatment Medication Medication Name Sig Start Date Stop Date Notes DULoxetine HCl 20 MG 1 capsule Orally On ce a day for 30 days Next Appt Details Provider Name:Pratibha Juarez, 12/24/2024 10:00:00 AM, [address] [place] [address], [place], [id number], Progress Notes * Osmani MOBLEYIsaacOB: 4 (18 yo F)Acc No.[id number]:04/10/2024 Patient:?Adrienne MOBLEY :2005???Age:18 Y???Sex:Female Address:[place], [address] * Refills? Refill DULoxetine HCl Capsule Delayed Release Particles, 20 MG, Orally, 30 Capsule, 1 capsule, Once a day, 30 days, Refills=3 * true * Date:? Generated for Beata granados/Leroy/Marilinitting on:?10/15/2024 06:32 AM EDT
== END 2024-10-15 06:29 | disposition home or self-care (01) ==
LOC: HO.UMASIMG 06:28
PROVIDERS: Visit Provider Nurse Practitioner Women's Health
DX: R10.2 Pelvic and perineal pain (principal); N76.0 Acute vaginitis
CPT/HCPCS: 76830; 76856

== ENCOUNTER → 2024-10-15 09:00 | Outpatient (BNV) | payer BC, SELFPAY | PROVIDERS: Visit Provider Radiology Diagnostic Radiology | DX: R10.2 Pelvic and perineal pain (principal) | CPT/HCPCS: 76830; 76856 ==